=== PATIENT | female | born 1945 | race African-American/Black ===

== ENCOUNTER → 2016-04-24 | Outpatient (CLI) | payer MEDICARE ==
--- NOTE | 2016-04-24 12:14 | RAD ---
EXAM: Dual modality PET/CT. HISTORY: Follicular lymphoma restaging. TECHNIQUE: PET imaging of the body from the skull base to the proximal thighs was performed approximately 60 minutes following the intravenous administration of 10.6 mCi F-[address] images of the body were obtained for attenuation correction purposes. The blood glucose level prior to tracer administration was 92 mg/dl. COMPARISON: 04/19/2015. FINDINGS: There has been slight interval increase in the degree of radiotracer activity associated with multiple prominent mesenteric lymph nodes, with a maximum SUV of 4.2 compared to a prior measurement of 3.0. He largest lymph node measures 1.3 cm within the right midabdomen, slightly increased compared to the prior study. There is no new region of abnormal tracer activity. The CT portion of the exam demonstrates stable prominent lymph nodes within the mesentery, the largest of which measures 1.3 cm within the right mid abdomen. There is no new lymphadenopathy. The left thyroid lobe is absent. The heart is upper normal in size. There is coronary artery and aortic atherosclerosis. There is no pneumothorax or pleural effusion. There is no suspicious pulmonary nodule. There is a tiny hiatal hernia. There are a few small hypodense lesions within the liver, the largest of which measures 1 cm within the right hepatic lobe. The gallbladder, pancreas, spleen, adrenal glands and kidneys are unremarkable. The uterus is surgically absent. The ovaries are unremarkable. The bladder is unremarkable. The visualized portions of the brain and skull base are unremarkable. There are few benign bone islands. There are degenerative changes throughout the spine. IMPRESSION: 1. Slight interval increase in radiotracer activity within multiple prominent mesenteric lymph nodes, with a maximum SUV of 4.2 compared with prior measurement of 3.0. This interval change and slight increased size of these lymph nodes compared to the prior study suggests slight progressive disease. No additional new or increasing region of lymphadenopathy or abnormal tracer activity is seen. 2. Several stable hypodense lesions within the liver, difficult to assess in the absence of contrast and possibly cysts or hemangiomas.
== END | disposition home or self-care (01) ==
LOC: PETSC 10:36
PROVIDERS: ATTEND Internal Medicine Hematology & Oncology
DX: C82.80 Other types of follicular lymphoma, unspecified site (principal); I70.0 Atherosclerosis of aorta; K76.9 Liver disease, unspecified; M47.899 Other spondylosis, site unspecified; Z90.710 Acquired absence of both cervix and uterus
CPT/HCPCS: 78815; A9552

== ENCOUNTER → 2016-07-31 | Outpatient (CLI) | payer MEDICARE ==
--- NOTE | 2016-08-01 09:36 | RAD ---
Indication: Non-Hodgkin's lymphoma follow-up. PET/CT was performed from the skull through the proximal thigh. CT was performed primarily for attenuation and localization purposes as opposed to primary diagnostic purposes. 14 mCi of FDG was administered. Blood sugar during the examination was entered and 7. Note is made of a previous examination April 24, 2016. On CT the visualized brain appears unremarkable. No significant finding is apparent in the neck. No pulmonary nodules or significant finding is seen in the chest there are masses in the liver which are not completely characterized on this exam but probably reflects cysts. No adrenal renal or pancreatic pathology is seen. There are mesenteric lymph nodes seen which appear relatively stable in size relative to the previous exam. On PET the FDG is physiologically distributed in the brain. No abnormality is seen in the neck. Minimally FDG avid node is noted in the left axilla. Maximum SUV approximately 1.2.. This does represent a new finding however relative to the previous study. No FDG avid finding in the mediastinum is seen. In the abdomen the mesenteric nodes seen on CT demonstrate increased FDG activity relative to the previous exam. Maximum SUV on today's examination is 4.6 whereas previously it was approximately 4.2. These findings are suggestive of recurrent disease IMPRESSION: Abdominal mesenteric lymph nodes are slightly more hypermetabolic than previously suggesting recurrent disease. Minimally FDG avid node is noted in the left axilla which is nonspecific
== END | disposition home or self-care (01) ==
LOC: PETSC 07:56
PROVIDERS: ATTEND Internal Medicine Hematology & Oncology
DX: C82.80 Other types of follicular lymphoma, unspecified site (principal)
CPT/HCPCS: 78815; A9552

== ENCOUNTER → 2016-11-20 | Outpatient (CLI) | payer MEDICARE ==
--- NOTE | 2016-11-20 09:47 | RAD ---
Indication restage non-Hodgkin's lymphoma. PET/CT was performed from the skull through the proximal 5. CT was performed primarily for localization and attenuation purposes is post primary diagnostic purposes. 12 mCi of FDG was administered. Blood sugar during the examination was monitored and 12. Note is made of a previous examination 07/31/2016. On CT the visualized brain appears unremarkable. No significant abnormality is seen in the neck. There is some coronary artery calcification in the chest. Significant hilar or mediastinal adenopathy is not seen. The lungs are clear. In the abdomen and pelvis no significant finding is seen. Significant adenopathy is not apparent. Degenerative changes are noted in the lumbar spine. On PET there is normal FDG activity in the visualized brain. No abnormal activity is seen in the neck. A minimally avid FDG node is noted in the left axilla. Maximum SUV is approximately 1.6 minimally increased relative to the previous examination when the maximum SUV was 1.2. No FDG avid nodes are seen in the mediastinum. Slightly avid FDG lymph node in the right lower abdomen, upper pelvis with a maximum SUV of 4.5. Previously the corresponding number was 4.2. This is nonspecific. No additional FDG avid nodes are seen in the abdomen or pelvis. IMPRESSION: Minimally FDG avid lymph node in the left axilla and slightly avid FDG lymph node in the right abdomen/upper pelvis is nonspecific. SUV numbers are minimally higher than on the examination previously.
== END | disposition home or self-care (01) ==
LOC: PETSC 07:18
PROVIDERS: ATTEND Internal Medicine Hematology & Oncology
DX: C82.90 Follicular lymphoma, unspecified, unspecified site (principal)
CPT/HCPCS: 78815; A9552

== ENCOUNTER → 2017-05-28 | Outpatient (CLI) | payer MEDICARE | END | disposition home or self-care (01) | LOC: PETSC 07:22 | DX: C85.91 Non-Hodgkin lymphoma, unspecified, lymph nodes of head, face, and neck (principal); I25.10 Atherosclerotic heart disease of native coronary artery without angina pectoris; K44.9 Diaphragmatic hernia without obstruction or gangrene; K76.9 Liver disease, unspecified | CPT/HCPCS: 78815; A9552 ==

== ENCOUNTER → 2018-05-27 | Outpatient (CLI) | payer MEDICARE ==
--- NOTE | 2018-05-27 10:45 | RAD ---
FDG tumor localization scan, PET/CT, 05/27/2018: History: Follow-up lymphoma Following IV injection of 13.3 mCi of 18 F-FDG, imaging was performed from the skull base to the proximal thighs. The noncontrast CT component was performed for attenuation correction and anatomic localization purposes rather than for primary diagnosis. The patient's blood glucose level at the time of injection was 108 MG/DL. Comparison is made to a study from 05/28/2017. There is a new focus of hypermetabolic activity in the lower neck on the left which appears to correspond to an 11 mm lymph node. The maximum SUV is 6.3. This represents a Deauville criteria score of 4. The neck activity is otherwise physiologic. No abnormal pulmonary or mediastinal FDG uptake is seen. Several small bilateral axillary lymph nodes are seen without abnormal FDG uptake. Normal GI tract and urinary tract activity is present in the abdomen and pelvis. There is a cluster of small mesenteric lymph nodes just to the right of midline in the lower abdomen which appear to be of similar size when compared to the previous CT images. The largest of these measures 8 x 13 mm. There is a focus of increased FDG uptake in this region, however, localization is not precise due to misregistration artifact. This focus of increased activity probably corresponds to the largest of these mesenteric nodes. The maximum SUV is 4.8 compared to a value of 3.5 on the previous study. No other abdominal or pelvic abnormality is evident. Incidental CT findings include the presence of moderate arterial calcifications including the coronary arteries. Several small unchanged hepatic lucencies are probably cysts. IMPRESSION: 1. New small hypermetabolic lymph node in the left lower neck. 2. A small hypermetabolic mesenteric lymph node which is stable in size, demonstrates slightly increased FDG uptake compared to the 05/28/2017 exam.
== END | disposition home or self-care (01) ==
LOC: PETSC 07:11
PROVIDERS: ATTEND Internal Medicine Hematology & Oncology
DX: C85.91 Non-Hodgkin lymphoma, unspecified, lymph nodes of head, face, and neck (principal); I70.0 Atherosclerosis of aorta
CPT/HCPCS: 78815; A9552

== ENCOUNTER → 2018-08-26 | Outpatient (CLI) | payer MEDICARE ==
--- NOTE | 2018-08-26 11:08 | RAD ---
FDG tumor localization scan, PET/CT, 08/26/2018: History: Restaging non-Hodgkin's lymphoma Following IV injection of 14.2 mCi of 18 F-FDG imaging was performed from the skull base to the proximal thighs. The noncontrast CT component was performed for attenuation correction and anatomic localization purposes rather than for primary diagnosis. The patient's blood glucose level at the time of injection was 110 MG/DL. Comparison is made to a study from 05/27/2018. The small hypermetabolic lymph node seen in the lower neck on the left on the previous study persists. It appears unchanged in size measuring approximately 11 x 13 mm. Its maximum SUV is 4.7 compared to a value of 6.3 on the previous study. No new neck abnormality is seen. No abnormal FDG uptake is seen in the lungs or mediastinum. Normal GI tract and urinary tract activity is present in the abdomen and pelvis. The cluster of small mesenteric lymph nodes noted just to the right of midline, just above the level the aortic bifurcation, appears unchanged. The largest of these nodes measures 7-8 mm in short axis dimension. There is low level FDG uptake in this region with a maximum SUV of 3.8 compared to value of 4.8 on the previous study. No new abdominal or pelvic adenopathy or hypermetabolic focus is identified. IMPRESSION: 1. The small hypermetabolic left cervical lymph node is unchanged in size and demonstrates a slightly lower level of FDG uptake on the current study. 2. The cluster of small mesenteric lymph nodes is unchanged in size and again demonstrates only low level FDG uptake, less than that seen on the previous study. 3. No new FDG PET abnormality is detected.
== END | disposition home or self-care (01) ==
LOC: PETSC 08:04
PROVIDERS: ATTEND Internal Medicine Hematology & Oncology
DX: C85.91 Non-Hodgkin lymphoma, unspecified, lymph nodes of head, face, and neck (principal)
CPT/HCPCS: 78815; A9552

== ENCOUNTER → 2019-03-04 | Outpatient (CLI) | payer MEDICARE ==
--- NOTE | 2019-03-04 12:00 | RAD ---
EXAM: PET/CT SKULL BASE TO MID THIGH. HISTORY: Non-Hodgkin lymphoma status post chemotherapy COMPARISON: 08/26/2018. TECHNIQUE: CT was performed from the skull base through the mid thighs for the purposes of attenuation correction. 15.3 mCi F-18 fluorodeoxyglucose (FDG) was administered intravenously. After an uptake period, positron emission tomography was performed from the skull base through the mid thighs. The PET and CT data were fused and interpreted in combination a dedicated workstation. Blood glucose level was 113 mg/dL at the time of FDG administration. FINDINGS: No clearly hypermetabolic lymph nodes are now appreciated within the neck. A component of misregistration artifact is present, with the FDG signature projecting to the left of the corresponding CT anatomy. No enlarged nodes are seen. One small left supraclavicular node is stable in size and demonstrates greatest uptake at Max SUV 3.1. Uptake within the floor the mouth and at the larynx is likely muscular. A focus of uptake within the root of the mesentery is not associated with an enlarged lymph nodes. Only subcentimeter nodes are seen. Maximum SUV is 2.3. The associated node has decreased in size since the prior study and measures 9 mm as compared with [address] findings include 4 small low-density lesions within the liver, likely representing benign cysts or hemangiomas. These are unchanged and are not hypermetabolic. There is a small hiatal hernia. The uterus is surgically absent. Coronary atherosclerotic calcifications are noted. IMPRESSION: 1. No clearly hypermetabolic lymph nodes suggestive of active disease are appreciated throughout the body. Previously noted small cervical and mesenteric lymph nodes demonstrate low level activity which appears decreased.
== END | disposition home or self-care (01) ==
LOC: PETSC 07:24
PROVIDERS: ATTEND Internal Medicine Hematology & Oncology
DX: C85.91 Non-Hodgkin lymphoma, unspecified, lymph nodes of head, face, and neck (principal); K44.9 Diaphragmatic hernia without obstruction or gangrene; I25.10 Atherosclerotic heart disease of native coronary artery without angina pectoris; Z92.21 Personal history of antineoplastic chemotherapy; Z90.710 Acquired absence of both cervix and uterus
CPT/HCPCS: 78815; A9552

== ENCOUNTER → 2020-03-02 | Outpatient (CLI) | payer MEDICARE ==
--- NOTE | 2020-03-02 18:27 | RAD ---
EXAM: PET W CT WHOLE BODY EXAM DATE: 03/02/2020 INDICATION: Reason: H/O HODGKIN LYMPHOMA NEW NIGHT SWEATS / Spl. Instructions: / History: RADIOPHARMACEUTICAL: 14.0 mCi of F-18 Fluorodeoxyglucose (FDG) I.V. via the left forearm. TECHNIQUE: Patient weight: 148 pounds. Following at least four-hour fasting, the patient's blood glucose was 97 mg/dl. Approximately 1 hour after administration of FDG, overlapping emission scanning was performed from the top of the head through both feet. A low-dose CT was performed for attenuation correction purposes and anatomic localization. Fused images of PET and CT were reviewed. Any standardized uptake values (SUV) reported are maximum values within a volume region of interest, expressed in gm/ml. COMPARISON: PET CT of 03/04/2019. FINDINGS: PET: No abnormal FDG uptake. CT: Head and neck shows an absent left thyroid lobe. No adenopathy or mass. Chest shows vascular degenerative changes.No adenopathy or mass. No pleural effusion. Abdomen shows several subcentimeter low-density lesions in the liver, statistically likely to be cysts. No adenopathy, mass or ascites on noncontrast CT. Vascular degenerative changes are present. No acute bowel pathology. Pelvis shows absent uterus and empty urinary bladder. No aggressive appearing osseous lesions. IMPRESSION: No evidence of FDG avid lymphoma recurrence. Electronically signed by: Alyson Campbell MD (03/02/2020 6:24 PM) [id number]
== END ==
LOC: PETSC 08:15
PROVIDERS: ATTEND Internal Medicine
DX: Z85.72 Personal history of non-Hodgkin lymphomas (principal)
CPT/HCPCS: 78816; A9552